=== PATIENT | male | born 1990 | race Caucasian/White ===

== ENCOUNTER 2021-04-17 11:24 | Emergency (ER) | payer SELFPAY ==
[2021-04-17] MEDS ORDERED: methylPREDNISolone Sodium Succinate 125 MG/2 ML SDV IM ONE (11:48)
[2021-04-17] MEDS ORDERED: Ketorolac 60 MG/2 ML SDV IM ONE (11:48)
--- NOTE | 2021-04-17 12:07 | EDM.PDOC ---
ED HPI GENERAL MEDICAL PROBLEM - General Chief Complaint: ENT Problem Stated Complaint: THROAT SWELLING SICK Time Seen by Provider: 04/17/21 11:34 Source of Information: Reports: Patient History Limitations: Reports: No Limitations - History of Present Illness INITIAL COMMENTS - FREE TEXT/NARRATIVE: HISTORY AND PHYSICAL: History of present illness: Patient is a 30-year-old male who presents to the emergency room with complaints of sore throat, body aches and cough. Patient states over the past 2 to 3 weeks he has had multiple upper respiratory infections, right ear infection and now believes he has strep throat. He most recently finished a course of Augmentin several days ago. Yesterday noted "white patches" to the back of his throat. Feels like his throat is swollen. Denies any drooling, difficulty swallowing, or breathing. Patient denies any fever, chills, headache, change in vision, syncope or near syncope. Denies any chest pain, back pain, shortness of breath. Denies any GI or symptoms. No recent travel or sick contacts. Review of systems: As per history of present illness and below otherwise all systems reviewed and negative. Past medical history: As per history of present illness and as reviewed below otherwise noncontributory. Surgical history: As per history of present illness and as reviewed below otherwise noncontributory. Social history: See social history for further information Family history: As per history of present illness and as reviewed below otherwise noncontributory. Physical exam: General: Well developed and well nourished 30 year old male. Alert and orientated x 3. Nontoxic in appearance and in no acute distress. Vital signs are stable and have been reviewed by me. Nursing notes were reviewed. HEENT: Atraumatic, normocephalic, pupils equal and reactive bilaterally, negative for conjunctival pallor or scleral icterus, mucous membranes moist, TMs normal bilaterally, throat exudate to posterior oropharynx without pillar shifting or fullness, white plaques to the base of posterior tongue, neck supple, nontender, trachea midline. No drooling or trismus noted. No meningeal signs. No hot potato voice noted. Lungs: Clear to auscultation bilaterally. No wheezes, rales, or rhonchi. Chest nontender. Normal work of breathing, no accessory muscles used. Heart: S1S2, regular rate and rhythm without overt murmur, gallops, or rubs. No JVD. No peripheral edema Abdomen: Soft, nondistended, nontender. Normoactive bowel sounds. Negative for masses or costovertebral tenderness. Skin: Intact, warm, dry. No lesions or rashes noted. Hematologic: No petechiae or purpra. Mucosa appropriate color and normal nail bed color and refill. Extremities: Atraumatic, moves all extremities per self without difficulty or deficits, negative for cords or calf pain. Neurovascular unremarkable. Neuro: Awake, alert, oriented. Cranial nerves II through XII unremarkable. Cerebellum unremarkable. Motor and sensory unremarkable throughout. Exam nonfocal. Psychiatric: Mood and affect are appropriate. Normal thought process. Answering questions appropriately. Please note that the patient was seen and evaluated during the 2019 SARS-CoV-2 novel coronavirus pandemic period. Community viral transmission is ongoing at time of this encounter and the emergency department is operating under pandemic response procedures. Medical Decision Making: Patient is a 30-year-old male who presents to the emergency room with complaints of cough, body aches and sore throat with exudate. He states over the past several weeks he has been dealing with upper respiratory illness which he was told was viral, last week was told he had a ear infection and treated with antibiotics but does not feel any improvement. States today he has sore throat with exudate to the posterior oropharynx. I do note some plaques to the posterior tongue. Did discuss gonorrhea/chlamydia testing of throat along with strep/Covid/influenza. Patient states there is no need for G&C testing. Patient strep, COVID and influenza screening are negative. I'm going to cover him with doxycycline as he recently finished Augmentin. Continues to have upper respiratory symptoms along with the exudate posterior oropharynx. Does appear like he has thrush on the back of his tongue as well, will do nystatin swish. Encouraged him to follow-up with primary care in a few days. I have talked with the patient about today's findings, in addition to providing specific details for plan of care. Reassessment at the time of disposition demonstrates that the patient is in no acute distress. The patient is stable for discharge, counseling was provided and we discussed in great detail signs and symptoms that would prompt them to return to the Emergency Department. Medication, follow up and supportive care measures were reviewed and discussed. Voices understanding and is agreeable to plan of care. Denies any further questions or concerns at this time. Diagnostics: Strep, COVID/influenza Therapeutics: Toradol, Solumedrol Prescription: Doxycycline, Nystatin Impression: Thrush Pharyngitis URI Plan: 1. You were evaluated today on an emergent basis. Take your medication as directed. Good handwashing and contact precautions as we discussed. 2. Warm Salt water gargles (rinse and spit) 3-4 x daily. Please get a new tooth brush after completion of your medication 3. Tylenol and or ibuprofen as needed for pain management. 4. Follow-up with your primary care provider in the next 1-2 days. Return to the ED as needed and as discussed. Definitive disposition and diagnosis as appropriate pending reevaluation and review of above. Throat Pain Score (Numeric/FACES): 10 - Related Data Allergies Allergy/AdvReac Type Severity Reaction Status Date / Time No Known Allergies Allergy Verified 04/17/21 11:54 Home Meds: Home Meds . [No Known Home Meds] 04/17/21 [History] ED ROS ENT - Review of Systems Review Of Systems: Comprehensive ROS is negative, except as noted in HPI. ED EXAM, ENT - Physical Exam Exam: See Below (See dictation) Course - Vital Signs Last Recorded V/S: Last Vital Signs Temp 96.9 F 04/17/21 11:53 Pulse 78 04/17/21 12:55 Resp 18 04/17/21 12:55 BP 134/98 H 04/17/21 12:55 Pulse Ox 98 04/17/21 12:55 - Orders/Labs/Meds Labs: Laboratory Tests 04/17/21 04/17/21 Range/Units 11:51 11:51 Influenza Type A RNA NEGATIVE (NEGATIVE) Influenza Type B RNA NEGATIVE (NEGATIVE) SARS-CoV-2 RNA (MOISES) NEGATIVE (NEGATIVE) Group A Strep (PCR) NOT DETECTED (NOT DETECT) Meds: Medications Discontinued Medications Generic Name Dose Route Start Last Admin Trade Name Freq PRN Reason Stop Dose Admin Ketorolac Tromethamine 60 mg 04/17/21 11:48 04/17/21 12:31 Ketorolac 60 Mg/2 Ml Sdv IM 04/17/21 11:49 60 mg ONETIME ONE Administration Methylprednisolone Sodium Succinate 125 mg 04/17/21 11:48 04/17/21 12:32 Methylprednisolone Sodium Succinate 125 Mg/2 Ml Sdv IM 04/17/21 11:49 125 mg ONETIME ONE Administration Departure - Departure Time of Disposition: 12:53 Disposition: Home, Self-Care 01 Clinical Impression: Thrush, oral, URI (upper respiratory infection) Pharyngitis Qualifiers: Pharyngitis/tonsillitis etiology: unspecified etiology Qualified Code(s): J02.9 - Acute pharyngitis, unspecified - Discharge Information Instructions: Oral Thrush, Adult, Ivry-os-[id number], Pharyngitis, [id number] Referrals: PCP,Not In Area [Primary Care Provider] - Forms: ED Department Discharge Additional Instructions: The following information is given to patients seen in the emergency department who are being discharged to home. This information is to outline your options for follow-up care. We provide all patients seen in our emergency department with a follow-up referral. The need for follow-up, as well as the timing and circumstances, are variable depending upon the specifics of your emergency department visit. If you don't have a primary care physician on staff, we will provide you with a referral. We always advise you to contact your personal physician following an emergency department visit to inform them of the circumstance of the visit and for follow-up with them and/or the need for any referrals to a consulting specialist. The emergency department will also refer you to a specialist when appropriate. This referral assures that you have the opportunity for follow-up care with a specialist. All of these measure are taken in an effort to provide you with optimal care, which includes your follow-up. Under all circumstances we always encourage you to contact your private physician who remains a resource for coordinating your care. When calling for follow-up care, please make the office aware that this follow-up is from your recent emergency room visit. If for any reason you are refused follow-up, please contact the [facility] Emergency Department at and asked to speak to the emergency department charge nurse. [facility] [address] [place] [address] [address] Thank you for choosing the [facility] emergency department in [place] for your medical needs today. It was a pleasure caring for you. Today you were seen in the emergency department for sore throat 1. You were evaluated today on an emergent basis. Take your medication as directed. Good handwashing and contact precautions as we discussed. 2. Warm Salt water gargles (rinse and spit) 3-4 x daily. Please get a new tooth brush after completion of your medication 3. Tylenol and or ibuprofen as needed for pain management. 4. Follow-up with your primary care provider in the next 1-2 days. Return to the ED as needed and as discussed. Sepsis Event Note (ED) - Focused Exam Vital Signs: Vital Signs Temp Pulse Resp BP Pulse Ox 04/17/21 12:55 78 18 134/98 H 98 04/17/21 11:53 96.9 F 110 H 16 123/82 96
[2021-04-17 12:42] LABS: CORONAVIRUS COVID-19 NAA NEGATIVE (NEGATIVE); INFLUENZA A NAA NEGATIVE (NEGATIVE); INFLUENZA B NAA NEGATIVE (NEGATIVE)
== END 2021-04-17 13:17 | disposition home or self-care (01) ==
LOC: MW.ED 11:24
DX: J02.9 Acute pharyngitis, unspecified (principal); B37.0 Candidal stomatitis; Z20.822 Contact with and (suspected) exposure to COVID-19
CPT/HCPCS: 0240U; 87651; 96372; 99283; J1885; J2930

== ENCOUNTER 2021-04-21 10:31 | Emergency (ER) | payer SELFPAY ==
[2021-04-21] MEDS ORDERED: Ketorolac 15 MG/ML SDV IM ONE (10:49)
[2021-04-21] MEDS ORDERED: Ketorolac 30 MG/ML SDV IM ONE (11:16)
[2021-04-21] MEDS ORDERED: Lactated Ringers 1,000 ML IV SCH (11:30)
[2021-04-21] MEDS ORDERED: Ketorolac 30 MG/ML SDV IVPUSH ONE (11:43)
[2021-04-21 12:40] LABS: CORONAVIRUS COVID-19 NAA NEGATIVE (NEGATIVE); INFLUENZA A NAA NEGATIVE (NEGATIVE); INFLUENZA B NAA NEGATIVE (NEGATIVE)
--- NOTE | 2021-04-21 13:31 | EDM.PDOC ---
ED HPI GENERAL MEDICAL PROBLEM - General Chief Complaint: General Stated Complaint: BODYACHES SORE THROAT Time Seen by Provider: 04/21/21 10:44 - History of Present Illness INITIAL COMMENTS - FREE TEXT/NARRATIVE: CHIEF COMPLAINT(S): "Feeling like shit." HISTORY OF PRESENT ILLNESS: This is a 30-year-old man without any significant past medical history presents to the emergency department with "Feeling like shit." Patient states that for approximately 1 month now he has been feeling like shit. He states that he has been evaluated by multiple doctors and has been experiencing a bifrontal headache not associated with any blurry vision, double vision, loss of vision. He states that he has had a diagnosis of bronchitis, has had a sore throat. He states that he was tested for strep and it was negative however he was provided antibiotics given his symptoms. He states that he is feeling exhausted and tired. He denies any weight loss. He states that his headache does not radiate anywhere. There are no aggravating or relieving factors. He states in addition to the sore throat he was diagnosed with a left ear infection prior to that. He is also using nystatin for oral thrush. He denies any history of HIV or immunosuppressive drugs other than steroids for the bronchitis. He denies any cough, shortness of breath, chest pain. He states that he does have some sinus congestion. REVIEW OF SYSTEMS: Constitutional: Positive for exhaustion. Denies fever, chills. Eyes: Denies eye pain Ears, Nose, Mouth, & Throat: Positive for sinus congestion, sore throat, thrush. Denies earache Cardiovascular: Denies chest pain Respiratory: Denies shortness of breath Gastrointestinal: Denies Nausea, vomiting, diarrhea, hematochezia. Genitourinary: Denies hematuria Skin:Denies a rash MSK: Denies joint pain Neurological: Positive for headache. Denies blurred vision, double vision, loss of vision, numbness, tingling, weakness psychiatric: Denies depression PAST MEDICAL HISTORY: As per history of present illness and as reviewed below otherwise noncontributory. SURGICAL HISTORY: As per history of present illness and as reviewed below otherwise noncontributory. SOCIAL HISTORY: As per history of present illness and as reviewed below otherwise noncontributory. FAMILY HISTORY: As per history of present illness and as reviewed below otherwise noncontributory. EXAMINATION OF ORGAN SYSTEMS/BODY AREAS: Constitutional: Blood pressure is 134/80, heart rate 81, respiratory rate 16 with an oxygen saturation 98% on room air. Temperature 36.7 General: Well-appearing man who is in no acute distress Psychiatric: Appropriate mood and affect. Eyes: No scleral icterus or conjunctival erythema pupils are equal round reactive to light. Extraocular movements intact. No vertical horizontal nystagmus. ENMT: Mucous membranes are moist. No pharyngeal erythema. The does evidence of thrush on the patient's tongue. None on the buccal mucosa or the hard palate. No stridor, drooling, trismus. Bilateral tympanic membranes without any bulging or erythema. Mild clear and sinus drainage Cardiovascular: Regular, rate, and rhythm. No gallops, murmurs, or rubs. Bilateral upper extremity pulses symmetric and intact. No peripheral edema. No JVD. Respiratory: Lungs clear to auscultation bilaterally. No wheezes, rales, or rhonchi. Gastrointestinal: Soft, non-tender, non-distended. Normoactive bowel sounds Genitourinary: No suprapubic tenderness Musculoskeletal: Normal range of motion. Skin: No lesions or abrasions. Neurological: AOx4. CN grossly intact. Strength 5/5 in bilateral upper and lower extremity. Sensation is intact bilaterally in upper and lower extremity. Gait appears normal. Finger to nose, heel to butler, rapid alternating movements intact. MEDICAL DECISION MAKING AND COURSE IN THE ED WITH INTERPRETATION/REVIEW OF DIAGNOSTIC STUDIES: This is a 30-year-old man with a past medical history of left ear infection, bronchitis, and recent diagnosis of strep throat clinically who is on antibiotics with resultant thrush from steroid administration who presents with viral syndrome who has normal vital signs. Given the patient's duration of his symptoms this is likely nonemergent however given the patient has never had labs will obtain basic labs including CBC and CMP. Will obtain repeat swabs of Covid, influenza. In addition to these labs we will obtain a mono screen given similar symptoms to mono. I did provide the patient with Toradol for pain relief. Laboratory: CBC reveals no abnormality. CMP reveals mild elevation in ALT at 82 otherwise unremarkable. Covid, influenza, mono screen and group A strep are negative. I did discuss the lab results with the patient. At this time the patient has a normal examination and normal vital signs. It is difficult to identify the cause for the patient's symptoms however I did discuss that he could be experiencing allergic symptoms and discussed treatment of this at home. In addition I did recommend that if he has any worsening of his symptoms the need to return to the emergency department and recommended that he follow-up with primary care physician for further work-up as prior nurse practitioner and myself had recommended gonorrhea and chlamydia swabs and obtaining an HIV sample. He did not want that at this time. He was amenable discharge and had no further questions. He requested a work excuse note. DISPOSITION: The patient was discharged home in stable condition. The patient will follow up with primary care physician in 3 to 5 days CONDITION: Fair PROCEDURES: None FINAL IMPRESSION(S)/DIAGNOSES: 1. Acute headache 2. Acute sinus congestion Gibson Fall M.D. body Pain Score (Numeric/FACES): 6 - Related Data Allergies Allergy/AdvReac Type Severity Reaction Status Date / Time No Known Allergies Allergy Verified 04/21/21 10:39 Home Meds: Home Meds Doxycycline [Doxycycline Hyclate] 100 mg PO Q12HR 04/21/21 [History] Nystatin 100,000 unit PO DAILY 04/21/21 [History] Past Medical History - Past Health History Medical/Surgical History: Denies Medical/Surgical History - Infectious Disease History Infectious Disease History: Reports: None Social & Family History - Family History Family Medical History: No Pertinent Family History - Caffeine Use Caffeine Use: Reports: Energy Drinks, Soda - Recreational Drug Use Recreational Drug Use: No ED ROS GENERAL - Review of Systems Review Of Systems: See Below ED EXAM, GENERAL - Physical Exam Exam: See Below Course - Vital Signs Last Recorded V/S: Last Vital Signs Temp 36.3 C 04/21/21 13:40 Pulse 76 04/21/21 13:40 Resp 18 04/21/21 13:40 BP 113/77 04/21/21 13:40 Pulse Ox 96 04/21/21 13:40 - Orders/Labs/Meds Labs: Laboratory Tests 04/21/21 04/21/21 04/21/21 Range/Units 11:31 11:32 11:42 WBC (4.0-11.0) K/uL RBC (4.50-5.90) M/uL Hgb (13.0-17.0) g/dL Hct (38.0-50.0) % MCV (80.0-98.0) fL MCH (27.0-32.0) pg MCHC (31.0-37.0) g/dL RDW Std Deviation (28.0-62.0) fl RDW Coeff of Gerald (11.0-15.0) % Plt Count (150-400) K/uL MPV (7.40-12.00) fL Neut % (Auto) (48.0-80.0) % Lymph % (Auto) (16.0-40.0) % [place] % (Auto) (0.0-15.0) % Eos % (Auto) (0.0-7.0) % Baso % (Auto) (0.0-1.5) % Neut # (Auto) (1.4-5.7) K/uL Lymph # (Auto) (0.6-2.4) K/uL [place] # (Auto) (0.0-0.8) K/uL Eos # (Auto) (0.0-0.7) K/uL Baso # (Auto) (0.0-0.1) K/uL Nucleated RBC % /100WBC Nucleated RBCs # K/uL Sodium (136-148) mmol/L Potassium (3.5-5.1) mmol/L Chloride (98-107) mmol/L Carbon Dioxide (21.0-32.0) mmol/L BUN (7.0-18.0) mg/dL Creatinine (0.8-1.3) mg/dL Est Cr Clr Drug Dosing mL/min Estimated GFR (MDRD) ml/min Glucose (74-106) mg/dL Calcium (8.5-10.1) mg/dL Total Bilirubin (0.2-1.0) mg/dL AST (15-37) IU/L ALT (14-63) IU/L Alkaline Phosphatase (46-116) U/L Total Protein (6.4-8.2) g/dL Albumin (3.4-5.0) g/dL Globulin (2.6-4.0) g/dL Albumin/Globulin Ratio (0.9-1.6) Monoscreen NEGATIVE (NEG) Influenza Type A RNA NEGATIVE (NEGATIVE) Influenza Type B RNA NEGATIVE (NEGATIVE) SARS-CoV-2 RNA (MOISES) NEGATIVE (NEGATIVE) Group A Strep (PCR) NOT DETECTED (NOT DETECT) 04/21/21 04/21/21 Range/Units 11:58 11:58 WBC 7.16 (4.0-11.0) K/uL RBC 5.00 (4.50-5.90) M/uL Hgb 15.3 (13.0-17.0) g/dL Hct 45.3 (38.0-50.0) % MCV 90.6 (80.0-98.0) fL MCH 30.6 (27.0-32.0) pg MCHC 33.8 (31.0-37.0) g/dL RDW Std Deviation 42.4 (28.0-62.0) fl RDW Coeff of Gerald 13 (11.0-15.0) % Plt Count 203 (150-400) K/uL MPV 11.20 (7.40-12.00) fL Neut % (Auto) 48.2 (48.0-80.0) % Lymph % (Auto) 39.7 (16.0-40.0) % [place] % (Auto) 8.5 (0.0-15.0) % Eos % (Auto) 3.2 (0.0-7.0) % Baso % (Auto) 0.4 (0.0-1.5) % Neut # (Auto) 3.5 (1.4-5.7) K/uL Lymph # (Auto) 2.8 H (0.6-2.4) K/uL [place] # (Auto) 0.6 (0.0-0.8) K/uL Eos # (Auto) 0.2 (0.0-0.7) K/uL Baso # (Auto) 0.0 (0.0-0.1) K/uL Nucleated RBC % 0.0 /100WBC Nucleated RBCs # 0 K/uL Sodium 139 (136-148) mmol/L Potassium 3.8 (3.5-5.1) mmol/L Chloride 103 (98-107) mmol/L Carbon Dioxide 30.2 (21.0-32.0) mmol/L BUN 13 (7.0-18.0) mg/dL Creatinine 0.9 (0.8-1.3) mg/dL Est Cr Clr Drug Dosing 136.87 mL/min Estimated GFR (MDRD) > 60.0 ml/min Glucose 93 (74-106) mg/dL Calcium 8.8 (8.5-10.1) mg/dL Total Bilirubin 1.0 (0.2-1.0) mg/dL AST 37 (15-37) IU/L ALT 82 H (14-63) IU/L Alkaline Phosphatase 97 (46-116) U/L Total Protein 7.0 (6.4-8.2) g/dL Albumin 3.7 (3.4-5.0) g/dL Globulin 3.3 (2.6-4.0) g/dL Albumin/Globulin Ratio 1.1 (0.9-1.6) Monoscreen (NEG) Influenza Type A RNA (NEGATIVE) Influenza Type B RNA (NEGATIVE) SARS-CoV-2 RNA (MOISES) (NEGATIVE) Group A Strep (PCR) (NOT DETECT) Meds: Medications Discontinued Medications Generic Name Dose Route Start Last Admin Trade Name Alessandra PRN Reason Stop Dose Admin Lactated Ringer's 1,000 mls @ 999 mls/hr 04/21/21 11:30 04/21/21 11:47 Ringers, Lactated IV 999 mls/hr ASDIRECTED RAHUL Administration Ketorolac Tromethamine 15 mg 04/21/21 10:49 04/21/21 11:26 Ketorolac 15 Mg/Ml Sdv IM 04/21/21 10:50 Not Given ONETIME ONE Ketorolac Tromethamine 15 mg 04/21/21 11:16 04/21/21 11:55 Ketorolac 30 Mg/Ml Sdv IM 04/21/21 11:17 Not Given ONETIME ONE Ketorolac Tromethamine 15 mg 04/21/21 11:43 04/21/21 11:53 Ketorolac 30 Mg/Ml Sdv IVPUSH 04/21/21 11:44 15 mg ONETIME ONE Administration Departure - Departure Time of Disposition: 13:30 Disposition: Home, Self-Care 01 Condition: Fair Clinical Impression: Viral syndrome, Fatigue - Discharge Information *PRESCRIPTION DRUG MONITORING PROGRAM REVIEWED*: No *COPY OF PRESCRIPTION DRUG MONITORING REPORT IN PATIENT JOSE: No Instructions: Fatigue, Viral Illness, Adult Referrals: PCP,None [Primary Care Provider] - Forms: ED Department Discharge Additional Instructions: You were evaluated today on an emergent basis. At this time your mono screen and other viral screening was negative. In addition to you continue your antibiotics as prescribed I recommend you continue the nystatin for the oral thrush. This could be all caused by allergies and I recommend you take Zyrtec at night before bed and use Flonase 1 spray in each nostril twice a day. Flonase does not work unless you use it for greater than 10 days and I recommend you continue using that. If you have any worsening symptoms I want you to return to the emergency department these include chest pain, shortness of breath, drooling, inability to swallow. Follow-up with primary care within 3 to 5 days. If you do not have a primary care physician please contact one of the numbers below to set up an appointment. [facility] - [facility] [address] [place] [id number] [place] [address] The patient is informed of any results of their evaluation and diagnostic workup and all questions are answered. They are given discharge instructions and return precautions. The patient is stable for discharge. The patient states they understand and agree with the plan and that they will return if their symptoms get worse or if they have any new concerns. The following information is given to patients seen in the emergency department who are being discharged to home. This information is to outline your options for follow-up care. We provide all patients seen in our emergency department with a follow-up referral. The need for follow-up, as well as the timing and circumstances, are variable depending upon the specifics of your emergency department visit. If you don't have a primary care physician on staff, we will provide you with a referral. We always advise you to contact your personal physician following an emergency department visit to inform them of the circumstance of the visit and for follow-up with them and/or the need for any referrals to a consulting specialist. The emergency department will also refer you to a specialist when appropriate. This referral assures that you have the opportunity for follow-up care with a specialist. All of these measure are taken in an effort to provide you with optimal care, which includes your follow-up. Under all circumstances we always encourage you to contact your private physician who remains a resource for coordinating your care. When calling for follow-up care, please make the office aware that this follow-up is from your recent emergency room visit. If for any reason you are refused follow-up, please contact the [facility] Emergency Department at and asked to speak to the emergency department charge nurse. Sepsis Event Note (ED) - Evaluation Sepsis Screening Result: No Definite Risk
[2021-04-21 13:41] LABS: BLOOD UREA NITROGEN,BUN 13 mg/dL (7.0-18.0); CARBON DIOXIDE,CO2 30.2 mmol/L (21.0-32.0); CHLORIDE,CL 103 mmol/L (98-107); GLUCOSE RANDOM 93 mg/dL (74-106); POTASSIUM,K 3.8 mmol/L (3.5-5.1); SODIUM,NA 139 mmol/L (136-148)
== END 2021-04-21 13:40 | disposition home or self-care (01) ==
LOC: MW.ED 10:31
DX: B34.9 Viral infection, unspecified (principal); R53.83 Other fatigue; Z20.822 Contact with and (suspected) exposure to COVID-19
CPT/HCPCS: 0240U; 36415; 80053; 85025; 86308; 87651; 96374; 99283; J1885; J7120